=== PATIENT | male | born 1940 | race Caucasian/White ===

== ENCOUNTER 2022-09-05 18:59 | Inpatient (IN) | payer MEDICARE, BC ==
[~2022-09-05] VITALS: Ht 177.8 cm; Wt 78.3 kg
[2022-09-05] MEDS ORDERED: KETOROLAC 60MG/2ML VIAL IM STA (19:05)
[2022-09-05 19:48] LABS: BASOPHILS % 0.4 % (0.0-2.0); CHLORIDE 106 mEq/L (98-107); EOSINOPHILS % 2.2 % (0.0-5.0); HEMATOCRIT. 46.7 % (42.0-52.0); LYMPHOCYTES % 22.8 % (20.0-50.0); MEAN CORPUSCULAR HEMOGLOBIN 31.7 pg (28.0-32.0); MEAN CORPUSCULAR VOLUME 92.8 fL (80.0-94.0); MEAN PLATELET VOLUME 8.9 fl (7.4-10.4); MONOCYTES % 9.7 % (2.0-8.0); NEUTROPHILS % 64.9 % (40.0-76.0); PLATELET 205 x1000/uL (130-400); RED BLOOD CELL COUNT 5.03 mill/uL (4.7-6.1); RED CELL DISTRIBUTION WIDTH 13.8 % (11.6-14.6)
[2022-09-05] MEDS ORDERED: MORPHINE SULFATE 4 MG/ML CPJ (NOT FOR IM USE) IV STA (20:56)
[2022-09-05] MEDS ORDERED: ONDANSETRON HCL 4MG/2ML INJ IV STA (20:56)
[2022-09-05] MEDS ORDERED: SODIUM CHLORIDE 0.9% 1,000 ML IV ONE (21:00)
[2022-09-05] MEDS ORDERED: NON FORMULARY PATIENT HOME MED XX SCH (23:15)
[2022-09-05] MEDS ORDERED: CLONIDINE 0.1MG TABLET PO PRN (23:15)
[2022-09-05] MEDS ORDERED: ACETAMINOPHEN 325MG TABLET PO PRN (23:15)
[2022-09-05] MEDS ORDERED: ONDANSETRON HCL 4MG/2ML INJ IV PRN (23:15)
[2022-09-05] MEDS ORDERED: IPRATROPIUM/ALBUTEROL 0.5-3(2.5)MG/3ML NEB NEB PRN (23:15)
[2022-09-05] MEDS ORDERED: LORA-249 MT (23:16)
[2022-09-05] MEDS ORDERED: PROP60CA2 MT (23:16)
[2022-09-05] MEDS ORDERED: AMAN100C18 MT (23:16)
[2022-09-05] MEDS ORDERED: ASPI-1497 MT (23:16)
[2022-09-05] MEDS: SODIUM CHLORIDE 0.9% 1,000 ML IV SCH (23:45)
[2022-09-06 00:12] LABS: INR 1.1; PROTHROMBIN TIME 11.6 sec (9.6-11.0)
[2022-09-06] MEDS ORDERED: NALOXONE HCL 0.4MG/ML VIAL IV PRN (00:15)
[2022-09-06] MEDS: MORPHINE SULFATE 2 MG/ML CPJ (NOT FOR IM USE) IV PRN ×3 (03:17→23:18)
[2022-09-06 05:41] LABS: BASOPHILS % 0.2 % (0.0-2.0); EOSINOPHILS % 0.2 % (0.0-5.0); HEMATOCRIT. 42.7 % (42.0-52.0); HEMOGLOBIN. 14.7 g/dL (14.0-18.0); LYMPHOCYTES % 9.1 % (20.0-50.0); MEAN CORPUSCULAR HEMOGLOBIN 31.6 pg (28.0-32.0); MEAN CORPUSCULAR VOLUME 91.9 fL (80.0-94.0); MEAN PLATELET VOLUME 8.8 fl (7.4-10.4); MONOCYTES % 7.2 % (2.0-8.0); NEUTROPHILS % 83.3 % (40.0-76.0); PLATELET 203 x1000/uL (130-400); RED BLOOD CELL COUNT 4.64 mill/uL (4.7-6.1); RED CELL DISTRIBUTION WIDTH 13.4 % (11.6-14.6)
[2022-09-06] MEDS: PROPRANOLOL HCL 10MG TABLET PO SCH ×3 (06:16→23:02)
[2022-09-06 07:31] LABS: CHLORIDE 103 mEq/L (98-107)
[2022-09-06 07:51] LABS: T4 FREE 1.16 ng/dL (0.76-1.46)
[2022-09-06] MEDS ORDERED: REGADENOSON 0.4 MG/5 ML IV NR (08:15)
[2022-09-06] MEDS ORDERED: PROPRANOLOL HCL 10MG TABLET PO SCH (09:00)
[2022-09-06] MEDS: AMANTADINE HCL 100 MG CAPSULE PO SCH ×2 (09:00→20:16)
[2022-09-06] MEDS: LORAZEPAM 0.5MG TABLET PO SCH ×2 (09:07→20:16)
[2022-09-06] MEDS: DOCUSATE SODIUM 100MG CAPSULE PO SCH ×2 (09:07→20:16)
[2022-09-06] MEDS: PANTOPRAZOLE SODIUM 40 MG/VIAL IV SCH (09:07)
[2022-09-06] MEDS: ASPIRIN 81MG EC TABLET PO SCH ×2 (09:07→20:16)
[2022-09-06] MEDS: SENNOSIDES/DOCUSATE SOD 8.6/50MG TABLET PO SCH (20:16)
[2022-09-06] MEDS: SODIUM CHLORIDE 0.9% 1,000 ML IV SCH (20:18)
[2022-09-06 21:30] VITALS: BP 120/71
[2022-09-07] VITALS (10 sets, daily range): BP systolic 91–125; BP diastolic 45–71
[2022-09-07] MEDS: PANTOPRAZOLE SODIUM 40 MG/VIAL IV SCH (09:39)
[2022-09-07] MEDS: SODIUM CHLORIDE 0.9% 1,000 ML IV SCH (09:39)
[2022-09-07] MEDS: DEXT 5%/0.45% NACL 1000ML 1,000 ML IV SCH (10:26)
[2022-09-07] MEDS ORDERED: IPRATROPIUM BROMIDE (0.02%) 0.5MG/2.5ML NEB HHN PRN (11:30)
[2022-09-07] MEDS ORDERED: ALBUTEROL (0.083%) 2.5MG/3ML NEB HHN PRN (11:30)
[2022-09-07] MEDS ORDERED: DIGOXIN 500MCG/2ML AMP IV NR (11:30)
[2022-09-07] MEDS ORDERED: SODIUM CHLORIDE 0.9% 250 ML IV ONE (12:00)
[2022-09-07] MEDS ORDERED: AMIODARONE HCL 900 MG in DEXT 5% WATER 482 ML IV SCH (13:00)
[2022-09-07] MEDS ORDERED: AMIODARONE HCL 150 MG in DEXT 5% WATER 100 ML IV NR (13:00)
[2022-09-07 16:31] LABS: CHLORIDE 102 mEq/L (98-107)
[2022-09-07] MEDS: DIGOXIN 500MCG/2ML AMP IV SCH (17:50)
[2022-09-07] MEDS: ASPIRIN 81MG EC TABLET PO SCH ×2 (21:00→22:19)
[2022-09-07] MEDS: LORAZEPAM 0.5MG TABLET PO SCH (22:18)
[2022-09-07] MEDS: DOCUSATE SODIUM 100MG CAPSULE PO SCH (22:19)
[2022-09-07] MEDS: AMANTADINE HCL 100 MG CAPSULE PO SCH (22:19)
[2022-09-07] MEDS: SENNOSIDES/DOCUSATE SOD 8.6/50MG TABLET PO SCH (22:20)
[2022-09-08] VITALS (11 sets, daily range): BP systolic 95–136; BP diastolic 44–116
[2022-09-08] MEDS: DEXT 5%/0.45% NACL 1000ML 1,000 ML IV SCH ×2 (03:10→20:41)
[2022-09-08] MEDS: DIGOXIN 500MCG/2ML AMP IV SCH (06:27)
[2022-09-08] MEDS: PROPRANOLOL HCL 10MG TABLET PO SCH ×3 (06:28→20:41)
[2022-09-08] MEDS ORDERED: DIGOXIN 500MCG/2ML AMP IV NR (09:00)
[2022-09-08] MEDS: DOCUSATE SODIUM 100MG CAPSULE PO SCH ×2 (09:16→19:03)
[2022-09-08] MEDS: ASPIRIN 81MG EC TABLET PO SCH ×2 (09:16→20:41)
[2022-09-08] MEDS: PANTOPRAZOLE SODIUM 40 MG/VIAL IV SCH (09:16)
[2022-09-08] MEDS: AMANTADINE HCL 100 MG CAPSULE PO SCH ×2 (09:21→19:03)
[2022-09-08] MEDS: LORAZEPAM 0.5MG TABLET PO SCH ×2 (09:21→19:03)
[2022-09-08 10:50] LABS: BASOPHILS % 0.5 % (0.0-2.0); EOSINOPHILS % 2.1 % (0.0-5.0); HEMOGLOBIN. 14.2 g/dL (14.0-18.0); MEAN CORPUSCULAR HEMOGLOBIN 31.7 pg (28.0-32.0); MEAN CORPUSCULAR VOLUME 93.5 fL (80.0-94.0); MEAN PLATELET VOLUME 10.1 fl (7.4-10.4); MONOCYTES % 11.9 % (2.0-8.0); NEUTROPHILS % 70.5 % (40.0-76.0); PLATELET 171 x1000/uL (130-400); RED CELL DISTRIBUTION WIDTH 13.6 % (11.6-14.6)
[2022-09-08 12:43] LABS: CHLORIDE 106 mEq/L (98-107)
[2022-09-08] MEDS ORDERED: HEPARIN 1000 UNITS/ML 10ML ONE (14:55)
[2022-09-08] MEDS ORDERED: IODIXANOL 320MG/ML 100 ML BOTTLE IV ONE (14:55)
[2022-09-08] MEDS ORDERED: FENTANYL CITRATE/PF 50MCG/ML 2ML VIAL ONE (14:56)
[2022-09-08] MEDS ORDERED: MIDAZOLAM HCL 2 MG/2 ML VIAL ONE (14:56)
[2022-09-08] MEDS ORDERED: LIDOCAINE HCL 1% 20ML VIAL (Pyxis) INJ ONE ×2 (14:57→14:58)
[2022-09-08] MEDS ORDERED: ATROPINE SULFATE 1MG/10ML SYR IV PRN (15:45)
[2022-09-08] MEDS: SENNOSIDES/DOCUSATE SOD 8.6/50MG TABLET PO SCH (20:40)
[2022-09-08] MEDS: ACETAMINOPHEN 325MG TABLET PO PRN (20:50)
[2022-09-09] VITALS (11 sets, daily range): BP systolic 89–130; BP diastolic 44–63
[2022-09-09] MEDS: PROPRANOLOL HCL 10MG TABLET PO SCH ×3 (05:33→21:49)
[2022-09-09 06:34] LABS: BASOPHILS % 0.3 % (0.0-2.0); EOSINOPHILS % 4.1 % (0.0-5.0); HEMOGLOBIN. 13.4 g/dL (14.0-18.0); LYMPHOCYTES % 18.1 % (20.0-50.0); MEAN CORPUSCULAR VOLUME 92.9 fL (80.0-94.0); MEAN PLATELET VOLUME 9.2 fl (7.4-10.4); MONOCYTES % 13.1 % (2.0-8.0); NEUTROPHILS % 64.4 % (40.0-76.0); PLATELET 187 x1000/uL (130-400); RED CELL DISTRIBUTION WIDTH 13.5 % (11.6-14.6)
[2022-09-09] MEDS: ASPIRIN 81MG EC TABLET PO SCH ×2 (10:06→21:46)
[2022-09-09] MEDS: DOCUSATE SODIUM 100MG CAPSULE PO SCH ×2 (10:06→16:24)
[2022-09-09] MEDS: FAMOTIDINE 20MG/2ML VIAL IV SCH ×2 (10:06→21:46)
[2022-09-09] MEDS: AMANTADINE HCL 100 MG CAPSULE PO SCH ×2 (10:15→16:24)
[2022-09-09] MEDS: LORAZEPAM 0.5MG TABLET PO SCH ×2 (10:16→16:24)
[2022-09-09] MEDS ORDERED: AMIODARONE HCL 900 MG in DEXT 5% WATER 482 ML IV PRN (11:00)
[2022-09-09] MEDS: DEXT 5%/0.45% NACL 1000ML 1,000 ML IV SCH (11:53)
[2022-09-09] MEDS ORDERED: LACTULOSE 20G/30ML UDC PO PRN (16:30)
[2022-09-09] MEDS: DIGOXIN 500MCG/2ML AMP IV SCH (17:07)
[2022-09-09] MEDS: SENNOSIDES/DOCUSATE SOD 8.6/50MG TABLET PO SCH (21:49)
[2022-09-10] VITALS (12 sets, daily range): BP systolic 98–133; BP diastolic 32–96
[2022-09-10] MEDS: ACETAMINOPHEN 325MG TABLET PO PRN ×2 (00:53→04:26)
[2022-09-10] MEDS: DEXT 5%/0.45% NACL 1000ML 1,000 ML IV SCH ×2 (04:03→21:32)
[2022-09-10] MEDS: PROPRANOLOL HCL 10MG TABLET PO SCH ×3 (06:00→21:31)
[2022-09-10] MEDS: AMANTADINE HCL 100 MG CAPSULE PO SCH ×2 (08:54→17:22)
[2022-09-10] MEDS: LORAZEPAM 0.5MG TABLET PO SCH ×2 (08:54→17:22)
[2022-09-10] MEDS: DOCUSATE SODIUM 100MG CAPSULE PO SCH ×2 (08:54→17:22)
[2022-09-10] MEDS: ASPIRIN 81MG EC TABLET PO SCH (08:54)
[2022-09-10] MEDS: FAMOTIDINE 20MG/2ML VIAL IV SCH ×2 (08:55→21:32)
[2022-09-10] MEDS: AMIODARONE HCL 200 MG TABLET PO SCH ×2 (09:10→21:00)
[2022-09-10] MEDS: MORPHINE SULFATE 2 MG/ML CPJ (NOT FOR IM USE) IV PRN (12:24)
[2022-09-10] MEDS: DIGOXIN 500MCG/2ML AMP IV SCH (17:27)
[2022-09-10] MEDS: SENNOSIDES/DOCUSATE SOD 8.6/50MG TABLET PO SCH (21:32)
[2022-09-11] VITALS (11 sets, daily range): BP systolic 110–140; BP diastolic 58–73
[2022-09-11] MEDS: ACETAMINOPHEN 325MG TABLET PO PRN (02:25)
[2022-09-11 06:10] LABS: HEMATOCRIT 38.1 % (42.0-52.0); HEMOGLOBIN 13.3 g/dL (14.0-18.0); MEAN CORPUSCULAR HEMOGLOBIN 31.8 pg (28.0-32.0); MEAN CORPUSCULAR VOLUME 91.5 fL (80.0-94.0); PLATELET 218 x1000/uL (130-400); RED BLOOD CELL COUNT 4.17 mill/uL (4.7-6.1); RED CELL DISTRIBUTION WIDTH 13.6 % (11.6-14.6)
[2022-09-11] MEDS: PROPRANOLOL HCL 10MG TABLET PO SCH ×3 (06:11→22:32)
[2022-09-11 07:54] LABS: CHLORIDE 103 mEq/L (98-107)
[2022-09-11] MEDS: AMIODARONE HCL 200 MG TABLET PO SCH ×2 (09:00→20:30)
[2022-09-11] MEDS: AMANTADINE HCL 100 MG CAPSULE PO SCH ×2 (09:29→19:41)
[2022-09-11] MEDS: FAMOTIDINE 20MG/2ML VIAL IV SCH ×2 (09:29→20:30)
[2022-09-11] MEDS: LORAZEPAM 0.5MG TABLET PO SCH (09:30)
[2022-09-11] MEDS: DOCUSATE SODIUM 100MG CAPSULE PO SCH ×2 (09:30→19:40)
[2022-09-11] MEDS: DEXT 5%/0.45% NACL 1000ML 1,000 ML IV SCH (12:59)
[2022-09-11] MEDS ORDERED: LIDOCAINE HCL 1%/EPI 1:200,000 30 ML VIAL ONE (14:04)
[2022-09-11] MEDS ORDERED: SKIN ADHESIVE 0.7 GM EA TOP ONE (14:05)
[2022-09-11] MEDS ORDERED: POLYMYXIN B SULFATE 500000 UNITS/VIAL ONE (14:05)
[2022-09-11] MEDS ORDERED: VANCOMYCIN HCL 1 GM/VIAL ONE (14:08)
[2022-09-11] MEDS ORDERED: ROPIVACAINE HCL 1% 20 ML VIAL EPI ONE (14:10)
[2022-09-11] MEDS ORDERED: EPINEPHRINE 1:1000 1 MG/ML AMP ONE (14:11)
[2022-09-11] MEDS ORDERED: KETOROLAC 30MG/ML VIAL ONE (14:11)
[2022-09-11] MEDS ORDERED: MORPHINE SULFATE/PF 1MG/ML 10ML AMP ONE (14:12)
[2022-09-11] MEDS ORDERED: TRANEXAMIC ACID 1,000 MG in SODIUM CHLORIDE 0.9% 100 ML IV NR ×2 (14:15→15:00)
[2022-09-11] MEDS ORDERED: FENTANYL CITRATE/PF 50MCG/ML 2ML VIAL ONE (14:37)
[2022-09-11] MEDS ORDERED: PROPOFOL 200MG/20ML VIAL IV ONE (14:37)
[2022-09-11] MEDS ORDERED: MIDAZOLAM HCL 2 MG/2 ML VIAL ONE (14:38)
[2022-09-11] MEDS ORDERED: CEFAZOLIN 1000MG PREMIX 50 ML IV SCH (16:30)
[2022-09-11] MEDS ORDERED: LABETALOL 5MG/ML SYR 20 MG/4 ML SYRINGE IV PRN (16:30)
[2022-09-11] MEDS ORDERED: ONDANSETRON HCL 4MG/2ML INJ IV PRN (16:30)
[2022-09-11] MEDS ORDERED: HYDROMORPHONE HCL/PF 2MG/ML CPJ IV PRN (16:30)
[2022-09-11] MEDS ORDERED: MEPERIDINE HCL/PF 25MG/ML CPJ IV PRN (16:30)
[2022-09-11] MEDS ORDERED: NALOXONE HCL 0.4MG/ML VIAL IV PRN (16:45)
[2022-09-11] MEDS: DIGOXIN 500MCG/2ML AMP IV SCH (18:00)
[2022-09-11] MEDS: SENNOSIDES/DOCUSATE SOD 8.6/50MG TABLET PO SCH (19:41)
[2022-09-11] MEDS: HYDROCODONE/ACETAMINOPHEN 5/325MG TABLET PO PRN (20:30)
[2022-09-11] MEDS: METOCLOPRAMIDE HCL 10MG/2ML VIAL IV SCH (22:32)
[2022-09-11] MEDS: CEFAZOLIN 1000MG PREMIX 50 ML IV SCH (22:32)
[2022-09-12] VITALS (11 sets, daily range): BP systolic 95–142; BP diastolic 45–74
[2022-09-12] MEDS: KETOROLAC 30MG/ML VIAL IV PRN ×2 (04:21→15:11)
[2022-09-12] MEDS: PROPRANOLOL HCL 10MG TABLET PO SCH ×2 (06:00→13:53)
[2022-09-12] MEDS: CEFAZOLIN 1000MG PREMIX 50 ML IV SCH ×2 (06:21→15:11)
[2022-09-12] MEDS: METOCLOPRAMIDE HCL 10MG/2ML VIAL IV SCH ×2 (06:21→13:53)
[2022-09-12] MEDS: DEXT 5%/0.45% NACL 1000ML 1,000 ML IV SCH (07:11)
[2022-09-12] MEDS: DOCUSATE SODIUM 100MG CAPSULE PO SCH ×2 (08:45→17:00)
[2022-09-12] MEDS: SENNOSIDES/DOCUSATE SOD 8.6/50MG TABLET PO SCH ×2 (08:45→17:00)
[2022-09-12] MEDS: HYDROCODONE/ACETAMINOPHEN 5/325MG TABLET PO PRN ×2 (08:45→19:55)
[2022-09-12] MEDS: FAMOTIDINE 20MG/2ML VIAL IV SCH (08:45)
[2022-09-12] MEDS: AMIODARONE HCL 200 MG TABLET PO SCH (08:46)
[2022-09-12] MEDS: AMANTADINE HCL 100 MG CAPSULE PO SCH ×2 (08:47→19:02)
[2022-09-12] MEDS ORDERED: POLYETHYLENE GLYCOL 3350 (17GM) 1 DOSE PACK PO SCH (09:00)
[2022-09-12] MEDS ORDERED: LACTULOSE 20G/30ML UDC PO SCH (09:00)
[2022-09-12] MEDS ORDERED: MINERAL OIL ENEMA 133ML PR NR (13:00)
[2022-09-12] MEDS: LACTULOSE 20G/30ML UDC PO SCH ×3 (13:53→17:00)
[2022-09-12] MEDS ORDERED: ATORVASTATIN CALCIUM 10MG TABLET PO SCH (21:00)
== END 2022-09-12 20:05 | DRG 521 ==
LOC: ER 19:33 → MICUSO 21:57 → 6EST 09-06 21:49 → 5EST 09-07 13:33
PROVIDERS: ADMIT Hospitalist; ATTEND Hospitalist
PROC: 4A023N7 Measurement of Cardiac Sampling and Pressure, Left Heart, Percutaneous Approach (ICD-10-PCS; 2022-09-08)
PROC: B2111ZZ Fluoroscopy of Multiple Coronary Arteries using Low Osmolar Contrast (ICD-10-PCS; 2022-09-08)
PROC: B2151ZZ Fluoroscopy of Left Heart using Low Osmolar Contrast (ICD-10-PCS; 2022-09-08)
PROC: 02HV33Z Insertion of Infusion Device into Superior Vena Cava, Percutaneous Approach (ICD-10-PCS; 2022-09-08)
PROC: B548ZZA Ultrasonography of Superior Vena Cava, Guidance (ICD-10-PCS; 2022-09-08)
PROC: 0SRS03A Replacement of Left Hip Joint, Femoral Surface with Ceramic Synthetic Substitute, Uncemented, Open Approach (ICD-10-PCS; principal; 2022-09-11)
DX: S72.002A Fracture of unspecified part of neck of left femur, initial encounter for closed fracture (principal); I50.21 Acute systolic (congestive) heart failure; I48.19 Other persistent atrial fibrillation; N17.9 Acute kidney failure, unspecified; N28.9 Disorder of kidney and ureter, unspecified; G20 Parkinson's disease; G25.81 Restless legs syndrome; K59.09 Other constipation; G89.29 Other chronic pain; D64.9 Anemia, unspecified; I95.9 Hypotension, unspecified; G62.9 Polyneuropathy, unspecified; Z20.822 Contact with and (suspected) exposure to COVID-19; Z96.652 Presence of left artificial knee joint; Z85.46 Personal history of malignant neoplasm of prostate; Z79.899 Other long term (current) drug therapy; Z79.82 Long term (current) use of aspirin; Z88.0 Allergy status to penicillin; Z82.49 Family history of ischemic heart disease and other diseases of the circulatory system; W18.30XA Fall on same level, unspecified, initial encounter; Y93.89 Activity, other specified; Y92.009 Unspecified place in unspecified non-institutional (private) residence as the place of occurrence of the external cause; Y99.8 Other external cause status
CPT/HCPCS: 36415; 36573; 71045; 72170; 73502; 78452; 80048; 80053; 80061; 80162; 82962; 83036; 83735; 83880; 84439; 84443; 84484; 85025; 85027; 87426; 88309; 88311; 93005; 93306; 93458; 93970; 97162; 99285; A9500; C1725; C1760; C1769; C1887; C1893; C9113; J0282; J0690; J1160; J1644; J1885; J2250; J2270; J2274; J2405; J2704; J2765; J2795; J3010; J3370; J3490; J7030; J7050; J7060; Q9967; C1776

== ENCOUNTER 2022-09-12 20:05 | Inpatient (IN) | payer MEDICARE, BC ==
[~2022-09-12] VITALS: Ht 177.8 cm; Wt 78.3 kg
[2022-09-12 20:05] VITALS: BP 121/51
[~2022-09-12 20:05] MED LIST: AMAN100C18 MT; ASPI-1497 MT; LORA-249 MT; PROP60CA2 MT
[2022-09-12 21:00] VITALS: BP_SYST 121; BP_SYST 135; BP_DIAS 51; BP_DIAS 71
[2022-09-12] MEDS ORDERED: CLONIDINE 0.1MG TABLET PO PRN (21:45)
[2022-09-12] MEDS ORDERED: NALOXONE HCL 0.4 MG/ML 1ML VIAL IV PRN (21:45)
[2022-09-12] MEDS ORDERED: ONDANSETRON HCL 4MG/2ML INJ IV PRN (21:45)
[2022-09-12] MEDS ORDERED: LACTULOSE 20G/30ML UDC PO PRN (21:45)
[2022-09-12] MEDS ORDERED: ACETAMINOPHEN 325MG TABLET PO PRN (21:45)
[2022-09-12 23:45] VITALS: BP 135/65
[2022-09-12] MEDS: AMIODARONE HCL 200 MG TABLET PO SCH (23:49)
[2022-09-12] MEDS: HYDROCODONE/ACETAMINOPHEN 5/325MG TABLET PO PRN (23:49)
[2022-09-12] MEDS: FAMOTIDINE 20MG TABLET PO SCH (23:52)
[2022-09-12] MEDS: PROPRANOLOL HCL 10MG TABLET PO SCH (23:53)
[2022-09-12] MEDS: METOCLOPRAMIDE HCL 10MG/2ML VIAL IV SCH (23:54)
[2022-09-12] MEDS: ATORVASTATIN CALCIUM 10MG TABLET PO SCH (23:54)
[2022-09-13] MEDS: CEFAZOLIN 1000MG PREMIX 50 ML IV SCH ×2 (00:05→06:25)
[2022-09-13] MEDS: PROPRANOLOL HCL 10MG TABLET PO SCH ×3 (06:00→21:24)
[2022-09-13 06:13] VITALS: BP 108/56
[2022-09-13 06:14] LABS: BASOPHILS % 0.4 % (0.0-2.0); EOSINOPHILS % 0.7 % (0.0-5.0); HEMATOCRIT. 37.8 % (42.0-52.0); HEMOGLOBIN. 12.9 g/dL (14.0-18.0); LYMPHOCYTES % 8.2 % (20.0-50.0); MEAN CORPUSCULAR HEMOGLOBIN 31.3 pg (28.0-32.0); MEAN CORPUSCULAR VOLUME 91.6 fL (80.0-94.0); MEAN PLATELET VOLUME 8.9 fl (7.4-10.4); MONOCYTES % 7.6 % (2.0-8.0); NEUTROPHILS % 83.1 % (40.0-76.0); PLATELET 249 x1000/uL (130-400); RED BLOOD CELL COUNT 4.13 mill/uL (4.7-6.1); RED CELL DISTRIBUTION WIDTH 13.6 % (11.6-14.6)
[2022-09-13] MEDS: METOCLOPRAMIDE HCL 10MG/2ML VIAL IV SCH (06:14)
[2022-09-13] MEDS: HYDROCODONE/ACETAMINOPHEN 5/325MG TABLET PO PRN (06:16)
[2022-09-13 06:24] LABS: CHLORIDE 98 mEq/L (98-107)
[2022-09-13 08:00] VITALS: BP 117/53
[2022-09-13] MEDS ORDERED: LACTULOSE 20G/30ML UDC PO SCH (09:00)
[2022-09-13] MEDS: POLYETHYLENE GLYCOL 3350 (17GM) 1 DOSE PACK PO SCH ×2 (09:00→09:42)
[2022-09-13] MEDS: DOCUSATE SODIUM 100MG CAPSULE PO SCH ×2 (09:37→17:00)
[2022-09-13] MEDS: LACTULOSE 20G/30ML UDC PO SCH (09:37)
[2022-09-13] MEDS: FAMOTIDINE 20MG TABLET PO SCH ×2 (09:38→21:21)
[2022-09-13] MEDS: ENOXAPARIN 40MG/0.4ML SYR SUBCUT SCH (09:39)
[2022-09-13] MEDS: AMIODARONE HCL 200 MG TABLET PO SCH (09:39)
[2022-09-13] MEDS: AMANTADINE HCL 100 MG CAPSULE PO SCH ×2 (09:41→17:10)
[2022-09-13] MEDS: SENNOSIDES/DOCUSATE SOD 8.6/50MG TABLET PO SCH (17:00)
[2022-09-13 18:44] LABS: CLARITY URINE CLEAR (CLEAR); COLOR URINE DARK YELLOW (YELLOW); KETONES URINE TRACE (NEGATIVE); LEUKOCYTE ESTERASE URINE NEGATIVE (NEGATIVE); NITRITE URINE NEGATIVE (NEGATIVE); OCCULT BLOOD URINE NEGATIVE (NEGATIVE); PROTEIN URINE 1+ (NEGATIVE); SPECIFIC GRAVITY URINE 1.026 (1.005-1.030)
[2022-09-13 20:13] VITALS: BP 110/34
[2022-09-13] MEDS: ATORVASTATIN CALCIUM 10MG TABLET PO SCH (21:21)
[2022-09-14 06:26] LABS: CHLORIDE 98 mEq/L (98-107)
[2022-09-14 06:37] LABS: BASOPHILS % 0.4 % (0.0-2.0); EOSINOPHILS % 0.8 % (0.0-5.0); HEMATOCRIT. 35.1 % (42.0-52.0); HEMOGLOBIN. 11.9 g/dL (14.0-18.0); LYMPHOCYTES % 8.5 % (20.0-50.0); MEAN CORPUSCULAR HEMOGLOBIN 31.3 pg (28.0-32.0); MEAN CORPUSCULAR VOLUME 92.4 fL (80.0-94.0); MEAN PLATELET VOLUME 9.2 fl (7.4-10.4); MONOCYTES % 11.3 % (2.0-8.0); PLATELET 233 x1000/uL (130-400); RED CELL DISTRIBUTION WIDTH 13.6 % (11.6-14.6)
[2022-09-14 06:43] LABS: TOTAL IRON BINDING CAPACITY 267 ug/dL (250-450)
[2022-09-14] MEDS: PROPRANOLOL HCL 10MG TABLET PO SCH ×2 (06:45→17:42)
[2022-09-14 07:02] LABS: FERRITIN 406 ng/mL (22-322)
[2022-09-14 07:16] LABS: VITAMIN B12 SERUM 446 pg/mL (211-911)
[2022-09-14 08:00] VITALS: BP 91/40
[2022-09-14] MEDS: LACTULOSE 20G/30ML UDC PO SCH (08:37)
[2022-09-14] MEDS: POLYETHYLENE GLYCOL 3350 (17GM) 1 DOSE PACK PO SCH (08:38)
[2022-09-14] MEDS: AMANTADINE HCL 100 MG CAPSULE PO SCH ×2 (08:45→17:42)
[2022-09-14] MEDS: ENOXAPARIN 40MG/0.4ML SYR SUBCUT SCH (08:45)
[2022-09-14] MEDS: SENNOSIDES/DOCUSATE SOD 8.6/50MG TABLET PO SCH ×2 (08:45→17:42)
[2022-09-14] MEDS: DOCUSATE SODIUM 100MG CAPSULE PO SCH ×2 (08:45→17:42)
[2022-09-14] MEDS: FAMOTIDINE 20MG TABLET PO SCH ×2 (08:45→20:51)
[2022-09-14] MEDS ORDERED: AMIODARONE HCL 200 MG TABLET PO SCH (09:00)
[2022-09-14] MEDS ORDERED: SODIUM CHLORIDE 0.9% 250 ML IV ONE (10:30)
[2022-09-14 13:26] VITALS: BP 100/49
[2022-09-14] MEDS ORDERED: PROPRANOLOL HCL 10MG TABLET PO SCH (14:00)
[2022-09-14] MEDS: CYANOCOBALAMIN 1000MCG/ML VIAL IM SCH (14:41)
[2022-09-14 17:22] VITALS: BP 120/56
[2022-09-14] MEDS: FERROUS SULFATE 325MG TABLET PO SCH (17:42)
[2022-09-14 20:00] VITALS: BP 103/59
[2022-09-14] MEDS: ATORVASTATIN CALCIUM 10MG TABLET PO SCH (20:51)
[2022-09-14] MEDS: CARBIDOPA/LEVODOPA 25/100MG TABLET PO SCH (22:09)
[2022-09-15 06:40] LABS: HEMATOCRIT. 31.5 % (42.0-52.0); HEMOGLOBIN. 10.6 g/dL (14.0-18.0); MEAN CORPUSCULAR HEMOGLOBIN 30.8 pg (28.0-32.0); MEAN CORPUSCULAR VOLUME 91.5 fL (80.0-94.0); MEAN PLATELET VOLUME 8.7 fl (7.4-10.4); PLATELET 274 x1000/uL (130-400); RED BLOOD CELL COUNT 3.44 mill/uL (4.7-6.1); RED CELL DISTRIBUTION WIDTH 13.6 % (11.6-14.6)
[2022-09-15] MEDS: CARBIDOPA/LEVODOPA 25/100MG TABLET PO SCH ×3 (06:52→23:27)
[2022-09-15 07:11] LABS: CHLORIDE 105 mEq/L (98-107)
[2022-09-15 08:00] VITALS: BP 114/48
[2022-09-15] MEDS: ENOXAPARIN 40MG/0.4ML SYR SUBCUT SCH (09:00)
[2022-09-15] MEDS: SENNOSIDES/DOCUSATE SOD 8.6/50MG TABLET PO SCH ×2 (09:00→17:34)
[2022-09-15] MEDS: POLYETHYLENE GLYCOL 3350 (17GM) 1 DOSE PACK PO SCH (09:00)
[2022-09-15] MEDS: ASCORBIC ACID 500 MG TABLET PO SCH (09:00)
[2022-09-15] MEDS: LACTULOSE 20G/30ML UDC PO SCH (09:00)
[2022-09-15] MEDS: PROPRANOLOL HCL 10MG TABLET PO SCH ×2 (09:00→17:36)
[2022-09-15] MEDS: FAMOTIDINE 20MG TABLET PO SCH ×2 (09:00→20:43)
[2022-09-15] MEDS: CYANOCOBALAMIN 1000MCG/ML VIAL IM SCH (09:00)
[2022-09-15] MEDS: FERROUS SULFATE 325MG TABLET PO SCH ×3 (09:00→17:00)
[2022-09-15] MEDS: AMANTADINE HCL 100 MG CAPSULE PO SCH ×2 (09:00→17:34)
[2022-09-15] MEDS: DOCUSATE SODIUM 100MG CAPSULE PO SCH ×2 (09:00→17:00)
[2022-09-15 14:23] LABS: PLATELET ESTIMATE NORMAL
[2022-09-15 20:00] VITALS: BP 99/46
[2022-09-15] MEDS: ATORVASTATIN CALCIUM 10MG TABLET PO SCH (20:43)
[2022-09-16] MEDS: CARBIDOPA/LEVODOPA 25/100MG TABLET PO SCH ×3 (05:35→21:30)
[2022-09-16 08:00] VITALS: BP 129/55
[2022-09-16] MEDS: LACTULOSE 20G/30ML UDC PO SCH (09:00)
[2022-09-16] MEDS: POLYETHYLENE GLYCOL 3350 (17GM) 1 DOSE PACK PO SCH (09:00)
[2022-09-16] MEDS: SENNOSIDES/DOCUSATE SOD 8.6/50MG TABLET PO SCH (09:00)
[2022-09-16] MEDS: ASCORBIC ACID 500 MG TABLET PO SCH (09:00)
[2022-09-16] MEDS: DOCUSATE SODIUM 100MG CAPSULE PO SCH ×2 (09:00→17:00)
[2022-09-16] MEDS: PROPRANOLOL HCL 10MG TABLET PO SCH ×2 (09:17→17:00)
[2022-09-16] MEDS: AMANTADINE HCL 100 MG CAPSULE PO SCH ×2 (09:17→17:00)
[2022-09-16] MEDS: FAMOTIDINE 20MG TABLET PO SCH ×2 (09:17→21:30)
[2022-09-16] MEDS: ENOXAPARIN 40MG/0.4ML SYR SUBCUT SCH (09:18)
[2022-09-16] MEDS: CYANOCOBALAMIN 1000MCG/ML VIAL IM SCH (09:18)
[2022-09-16] MEDS: FERROUS SULFATE 325MG TABLET PO SCH ×3 (09:18→17:00)
[2022-09-16] MEDS: ACETAMINOPHEN 325MG TABLET PO PRN (14:01)
[2022-09-16 20:00] VITALS: BP 107/54
[2022-09-16] MEDS: ATORVASTATIN CALCIUM 10MG TABLET PO SCH (21:30)
[2022-09-17] MEDS: CARBIDOPA/LEVODOPA 25/100MG TABLET PO SCH ×3 (05:55→21:20)
[2022-09-17 08:00] VITALS: BP 103/54
[2022-09-17 08:38] LABS: HEMATOCRIT. 35.5 % (42.0-52.0); MEAN CORPUSCULAR VOLUME 91.7 fL (80.0-94.0); MEAN PLATELET VOLUME 8.7 fl (7.4-10.4); PLATELET 350 x1000/uL (130-400); RED BLOOD CELL COUNT 3.87 mill/uL (4.7-6.1); RED CELL DISTRIBUTION WIDTH 13.6 % (11.6-14.6)
[2022-09-17] MEDS: PROPRANOLOL HCL 10MG TABLET PO SCH ×2 (09:00→16:18)
[2022-09-17] MEDS: LACTULOSE 20G/30ML UDC PO SCH (09:00)
[2022-09-17] MEDS: POLYETHYLENE GLYCOL 3350 (17GM) 1 DOSE PACK PO SCH (09:00)
[2022-09-17] MEDS: ENOXAPARIN 40MG/0.4ML SYR SUBCUT SCH (09:50)
[2022-09-17] MEDS: FAMOTIDINE 20MG TABLET PO SCH ×2 (09:52→21:21)
[2022-09-17] MEDS: AMANTADINE HCL 100 MG CAPSULE PO SCH ×2 (09:52→16:18)
[2022-09-17] MEDS: ASCORBIC ACID 500 MG TABLET PO SCH (09:52)
[2022-09-17] MEDS: DOCUSATE SODIUM 100MG CAPSULE PO SCH ×2 (09:52→16:18)
[2022-09-17] MEDS: FERROUS SULFATE 325MG TABLET PO SCH ×3 (09:53→16:18)
[2022-09-17] MEDS: SENNOSIDES/DOCUSATE SOD 8.6/50MG TABLET PO SCH ×2 (09:59→16:18)
[2022-09-17 13:23] LABS: PLATELET ESTIMATE NORMAL
[2022-09-17] MEDS: ALPRAZOLAM 0.25 MG TABLET PO PRN (18:26)
[2022-09-17 20:00] VITALS: BP 103/57
[2022-09-17] MEDS: ATORVASTATIN CALCIUM 10MG TABLET PO SCH (21:21)
[2022-09-18] MEDS: CARBIDOPA/LEVODOPA 25/100MG TABLET PO SCH ×3 (05:59→21:08)
[2022-09-18 08:00] VITALS: BP 104/57
[2022-09-18] MEDS: SENNOSIDES/DOCUSATE SOD 8.6/50MG TABLET PO SCH ×2 (09:04→16:39)
[2022-09-18] MEDS: ASCORBIC ACID 500 MG TABLET PO SCH (09:05)
[2022-09-18] MEDS: AMANTADINE HCL 100 MG CAPSULE PO SCH ×2 (09:05→16:39)
[2022-09-18] MEDS: PROPRANOLOL HCL 10MG TABLET PO SCH ×2 (09:05→16:38)
[2022-09-18] MEDS: FERROUS SULFATE 325MG TABLET PO SCH ×3 (09:06→16:39)
[2022-09-18] MEDS: POLYETHYLENE GLYCOL 3350 (17GM) 1 DOSE PACK PO SCH (09:06)
[2022-09-18] MEDS: LACTULOSE 20G/30ML UDC PO SCH (09:06)
[2022-09-18] MEDS: FAMOTIDINE 20MG TABLET PO SCH (09:06)
[2022-09-18] MEDS: ENOXAPARIN 40MG/0.4ML SYR SUBCUT SCH (09:06)
[2022-09-18] MEDS: DOCUSATE SODIUM 100MG CAPSULE PO SCH ×2 (09:06→16:39)
[2022-09-18 19:42] VITALS: BP 100/46
[2022-09-18] MEDS: ALPRAZOLAM 0.25 MG TABLET PO PRN (21:08)
[2022-09-18] MEDS: ATORVASTATIN CALCIUM 10MG TABLET PO SCH (21:08)
[2022-09-19] MEDS: CARBIDOPA/LEVODOPA 25/100MG TABLET PO SCH ×3 (06:35→22:16)
[2022-09-19 08:00] VITALS: BP 114/47
[2022-09-19] MEDS: ASCORBIC ACID 500 MG TABLET PO SCH (09:00)
[2022-09-19] MEDS: AMANTADINE HCL 100 MG CAPSULE PO SCH ×2 (09:00→16:55)
[2022-09-19] MEDS: DOCUSATE SODIUM 100MG CAPSULE PO SCH ×2 (09:00→16:56)
[2022-09-19] MEDS: FERROUS SULFATE 325MG TABLET PO SCH ×3 (09:00→16:55)
[2022-09-19] MEDS: SENNOSIDES/DOCUSATE SOD 8.6/50MG TABLET PO SCH ×2 (09:00→16:55)
[2022-09-19] MEDS: POLYETHYLENE GLYCOL 3350 (17GM) 1 DOSE PACK PO SCH (09:00)
[2022-09-19] MEDS: ENOXAPARIN 40MG/0.4ML SYR SUBCUT SCH (09:00)
[2022-09-19] MEDS: LACTULOSE 20G/30ML UDC PO SCH (09:00)
[2022-09-19] MEDS: PROPRANOLOL HCL 10MG TABLET PO SCH ×2 (09:00→16:59)
[2022-09-19] MEDS: FAMOTIDINE 20MG TABLET PO SCH (09:00)
[2022-09-19] MEDS: ACETAMINOPHEN 325MG TABLET PO PRN ×2 (14:04→17:41)
[2022-09-19 20:04] VITALS: BP 99/52
[2022-09-19 22:00] VITALS: BP 109/58
[2022-09-19] MEDS: ATORVASTATIN CALCIUM 10MG TABLET PO SCH (22:16)
[2022-09-20 04:12] LABS: 25-HYDROXY VITAMIN D3 21 ng/mL (.)
[2022-09-20] MEDS: ACETAMINOPHEN 325MG TABLET PO PRN (05:49)
[2022-09-20] MEDS: CARBIDOPA/LEVODOPA 25/100MG TABLET PO SCH ×3 (05:49→21:10)
[2022-09-20 08:00] VITALS: BP 120/53
[2022-09-20] MEDS: POLYETHYLENE GLYCOL 3350 (17GM) 1 DOSE PACK PO SCH (08:45)
[2022-09-20] MEDS: LACTULOSE 20G/30ML UDC PO SCH (08:45)
[2022-09-20] MEDS: ASCORBIC ACID 500 MG TABLET PO SCH (08:46)
[2022-09-20] MEDS: DOCUSATE SODIUM 100MG CAPSULE PO SCH ×2 (08:46→17:24)
[2022-09-20] MEDS: ENOXAPARIN 40MG/0.4ML SYR SUBCUT SCH (08:46)
[2022-09-20] MEDS: FAMOTIDINE 20MG TABLET PO SCH (08:46)
[2022-09-20] MEDS: AMANTADINE HCL 100 MG CAPSULE PO SCH ×2 (08:47→17:24)
[2022-09-20] MEDS: SENNOSIDES/DOCUSATE SOD 8.6/50MG TABLET PO SCH ×2 (08:47→17:24)
[2022-09-20] MEDS: FERROUS SULFATE 325MG TABLET PO SCH ×3 (08:47→17:00)
[2022-09-20] MEDS: PROPRANOLOL HCL 10MG TABLET PO SCH ×2 (08:58→17:26)
[2022-09-20] MEDS: SERTRALINE HCL 25MG TABLET PO SCH (13:59)
[2022-09-20 20:00] VITALS: BP 94/43
[2022-09-20] MEDS: ALPRAZOLAM 0.25 MG TABLET PO PRN (21:10)
[2022-09-20] MEDS: ATORVASTATIN CALCIUM 10MG TABLET PO SCH (21:10)
[2022-09-21] MEDS: CARBIDOPA/LEVODOPA 25/100MG TABLET PO SCH ×3 (05:42→21:14)
[2022-09-21 07:19] LABS: HEMATOCRIT. 34.5 % (42.0-52.0); HEMOGLOBIN. 11.7 g/dL (14.0-18.0); MEAN CORPUSCULAR HEMOGLOBIN 31.3 pg (28.0-32.0); MEAN CORPUSCULAR VOLUME 92.5 fL (80.0-94.0); MEAN PLATELET VOLUME 8.4 fl (7.4-10.4); PLATELET 405 x1000/uL (130-400); RED BLOOD CELL COUNT 3.73 mill/uL (4.7-6.1); RED CELL DISTRIBUTION WIDTH 13.9 % (11.6-14.6)
[2022-09-21 07:48] LABS: CHLORIDE 103 mEq/L (98-107)
[2022-09-21 08:00] VITALS: BP 119/50
[2022-09-21] MEDS: ENOXAPARIN 40MG/0.4ML SYR SUBCUT SCH (08:49)
[2022-09-21] MEDS: DOCUSATE SODIUM 100MG CAPSULE PO SCH ×2 (08:49→17:00)
[2022-09-21] MEDS: AMANTADINE HCL 100 MG CAPSULE PO SCH ×2 (08:49→18:09)
[2022-09-21] MEDS: LACTULOSE 20G/30ML UDC PO SCH (08:49)
[2022-09-21] MEDS: FAMOTIDINE 20MG TABLET PO SCH (08:49)
[2022-09-21] MEDS: FERROUS SULFATE 325MG TABLET PO SCH ×3 (08:50→18:09)
[2022-09-21] MEDS: ASCORBIC ACID 500 MG TABLET PO SCH (08:50)
[2022-09-21] MEDS: ACETAMINOPHEN 325MG TABLET PO PRN ×2 (08:50→18:09)
[2022-09-21] MEDS: SENNOSIDES/DOCUSATE SOD 8.6/50MG TABLET PO SCH ×2 (08:50→18:09)
[2022-09-21] MEDS: POLYETHYLENE GLYCOL 3350 (17GM) 1 DOSE PACK PO SCH (08:50)
[2022-09-21] MEDS: SERTRALINE HCL 25MG TABLET PO SCH (08:50)
[2022-09-21] MEDS: PROPRANOLOL HCL 10MG TABLET PO SCH ×2 (08:51→18:10)
[2022-09-21 11:44] LABS: PLATELET ESTIMATE NORMAL
[2022-09-21] MEDS: ERGOCALCIFEROL 50000UNITS CAPSULE PO SCH (12:58)
[2022-09-21 20:00] VITALS: BP 110/54
[2022-09-21] MEDS: ATORVASTATIN CALCIUM 10MG TABLET PO SCH (21:15)
[2022-09-22] MEDS: CARBIDOPA/LEVODOPA 25/100MG TABLET PO SCH ×3 (06:30→21:02)
[2022-09-22 08:00] VITALS: BP 133/60
[2022-09-22] MEDS: AMANTADINE HCL 100 MG CAPSULE PO SCH ×2 (09:58→17:01)
[2022-09-22] MEDS: FAMOTIDINE 20MG TABLET PO SCH (09:58)
[2022-09-22] MEDS: SERTRALINE HCL 25MG TABLET PO SCH (09:58)
[2022-09-22] MEDS: DOCUSATE SODIUM 100MG CAPSULE PO SCH ×2 (09:58→17:01)
[2022-09-22] MEDS: LACTULOSE 20G/30ML UDC PO SCH (09:58)
[2022-09-22] MEDS: ASCORBIC ACID 500 MG TABLET PO SCH (09:59)
[2022-09-22] MEDS: FERROUS SULFATE 325MG TABLET PO SCH ×3 (09:59→17:01)
[2022-09-22] MEDS: PROPRANOLOL HCL 10MG TABLET PO SCH ×2 (09:59→17:00)
[2022-09-22] MEDS: ENOXAPARIN 40MG/0.4ML SYR SUBCUT SCH (10:00)
[2022-09-22] MEDS: ACETAMINOPHEN 325MG TABLET PO PRN (10:01)
[2022-09-22] MEDS: POLYETHYLENE GLYCOL 3350 (17GM) 1 DOSE PACK PO SCH (10:01)
[2022-09-22] MEDS: SENNOSIDES/DOCUSATE SOD 8.6/50MG TABLET PO SCH ×2 (10:03→16:59)
[2022-09-22 20:25] VITALS: BP 151/72
[2022-09-22] MEDS: ATORVASTATIN CALCIUM 10MG TABLET PO SCH (20:58)
[2022-09-23] MEDS: CARBIDOPA/LEVODOPA 25/100MG TABLET PO SCH ×4 (05:16→21:32)
[2022-09-23 08:00] VITALS: BP 127/50
[2022-09-23] MEDS: ASCORBIC ACID 500 MG TABLET PO SCH (09:00)
[2022-09-23] MEDS: LACTULOSE 20G/30ML UDC PO SCH (09:49)
[2022-09-23] MEDS: FERROUS SULFATE 325MG TABLET PO SCH ×3 (09:49→17:00)
[2022-09-23] MEDS: DOCUSATE SODIUM 100MG CAPSULE PO SCH ×2 (09:49→17:41)
[2022-09-23] MEDS: PROPRANOLOL HCL 10MG TABLET PO SCH ×2 (09:50→17:43)
[2022-09-23] MEDS: SERTRALINE HCL 25MG TABLET PO SCH (09:50)
[2022-09-23] MEDS: SENNOSIDES/DOCUSATE SOD 8.6/50MG TABLET PO SCH ×2 (09:50→17:40)
[2022-09-23] MEDS: FAMOTIDINE 20MG TABLET PO SCH (09:50)
[2022-09-23] MEDS: AMANTADINE HCL 100 MG CAPSULE PO SCH ×2 (09:50→17:40)
[2022-09-23] MEDS: POLYETHYLENE GLYCOL 3350 (17GM) 1 DOSE PACK PO SCH (09:51)
[2022-09-23] MEDS: ENOXAPARIN 40MG/0.4ML SYR SUBCUT SCH (09:52)
[2022-09-23] MEDS: ATORVASTATIN CALCIUM 10MG TABLET PO SCH (20:16)
[2022-09-23 21:48] VITALS: BP 111/56
[2022-09-24] MEDS: CARBIDOPA/LEVODOPA 25/100MG TABLET PO SCH ×3 (05:30→20:49)
[2022-09-24 07:53] VITALS: BP 126/61
[2022-09-24] MEDS: ASCORBIC ACID 500 MG TABLET PO SCH (09:00)
[2022-09-24] MEDS: AMANTADINE HCL 100 MG CAPSULE PO SCH ×2 (09:33→17:33)
[2022-09-24] MEDS: FAMOTIDINE 20MG TABLET PO SCH (09:33)
[2022-09-24] MEDS: FERROUS SULFATE 325MG TABLET PO SCH ×3 (09:33→17:00)
[2022-09-24] MEDS: DOCUSATE SODIUM 100MG CAPSULE PO SCH ×2 (09:33→17:33)
[2022-09-24] MEDS: PROPRANOLOL HCL 10MG TABLET PO SCH ×2 (09:33→17:36)
[2022-09-24] MEDS: SERTRALINE HCL 25MG TABLET PO SCH (09:34)
[2022-09-24] MEDS: POLYETHYLENE GLYCOL 3350 (17GM) 1 DOSE PACK PO SCH (09:34)
[2022-09-24] MEDS: SENNOSIDES/DOCUSATE SOD 8.6/50MG TABLET PO SCH ×2 (09:34→17:33)
[2022-09-24] MEDS: ENOXAPARIN 40MG/0.4ML SYR SUBCUT SCH (09:35)
[2022-09-24] MEDS: LACTULOSE 20G/30ML UDC PO SCH (09:37)
[2022-09-24] MEDS: ALPRAZOLAM 0.25 MG TABLET PO PRN ×2 (09:45→22:00)
[2022-09-24 19:48] VITALS: BP 101/48
[2022-09-24] MEDS: ATORVASTATIN CALCIUM 10MG TABLET PO SCH (20:48)
[2022-09-25] MEDS: CARBIDOPA/LEVODOPA 25/100MG TABLET PO SCH ×3 (06:23→21:30)
[2022-09-25 07:48] VITALS: BP 116/54
[2022-09-25] MEDS: POLYETHYLENE GLYCOL 3350 (17GM) 1 DOSE PACK PO SCH (07:54)
[2022-09-25] MEDS: LACTULOSE 20G/30ML UDC PO SCH (07:55)
[2022-09-25] MEDS: ENOXAPARIN 40MG/0.4ML SYR SUBCUT SCH (07:56)
[2022-09-25] MEDS: DOCUSATE SODIUM 100MG CAPSULE PO SCH ×2 (07:56→17:20)
[2022-09-25] MEDS: FERROUS SULFATE 325MG TABLET PO SCH ×3 (07:56→17:20)
[2022-09-25] MEDS: FAMOTIDINE 20MG TABLET PO SCH (07:56)
[2022-09-25] MEDS: AMANTADINE HCL 100 MG CAPSULE PO SCH ×2 (08:00→17:20)
[2022-09-25] MEDS: ASCORBIC ACID 500 MG TABLET PO SCH (08:00)
[2022-09-25] MEDS: PROPRANOLOL HCL 10MG TABLET PO SCH ×2 (08:00→17:20)
[2022-09-25] MEDS: SENNOSIDES/DOCUSATE SOD 8.6/50MG TABLET PO SCH ×2 (08:00→17:20)
[2022-09-25] MEDS: SERTRALINE HCL 25MG TABLET PO SCH (08:01)
[2022-09-25] MEDS: ACETAMINOPHEN 325MG TABLET PO PRN (11:44)
[2022-09-25 20:00] VITALS: BP 138/73
[2022-09-25] MEDS: ALPRAZOLAM 0.25 MG TABLET PO PRN (21:31)
[2022-09-25] MEDS: ATORVASTATIN CALCIUM 10MG TABLET PO SCH (21:31)
[2022-09-26] MEDS: CARBIDOPA/LEVODOPA 25/100MG TABLET PO SCH ×3 (05:22→22:00)
[2022-09-26 06:40] LABS: BASOPHILS % 0.6 % (0.0-2.0); HEMATOCRIT. 37.1 % (42.0-52.0); HEMOGLOBIN. 12.9 g/dL (14.0-18.0); LYMPHOCYTES % 27.6 % (20.0-50.0); MEAN CORPUSCULAR VOLUME 92.1 fL (80.0-94.0); MEAN PLATELET VOLUME 8.2 fl (7.4-10.4); MONOCYTES % 10.9 % (2.0-8.0); NEUTROPHILS % 59.9 % (40.0-76.0); PLATELET 332 x1000/uL (130-400); RED BLOOD CELL COUNT 4.03 mill/uL (4.7-6.1); RED CELL DISTRIBUTION WIDTH 15.1 % (11.6-14.6)
[2022-09-26 07:37] LABS: CHLORIDE 102 mEq/L (98-107)
[2022-09-26 08:00] VITALS: BP 117/38
[2022-09-26] MEDS: ASCORBIC ACID 500 MG TABLET PO SCH (09:00)
[2022-09-26] MEDS: ENOXAPARIN 40MG/0.4ML SYR SUBCUT SCH (09:54)
[2022-09-26] MEDS: POLYETHYLENE GLYCOL 3350 (17GM) 1 DOSE PACK PO SCH (09:54)
[2022-09-26] MEDS: LACTULOSE 20G/30ML UDC PO SCH (09:54)
[2022-09-26] MEDS: FERROUS SULFATE 325MG TABLET PO SCH ×3 (09:55→19:07)
[2022-09-26] MEDS: PROPRANOLOL HCL 10MG TABLET PO SCH ×2 (09:55→19:07)
[2022-09-26] MEDS: AMANTADINE HCL 100 MG CAPSULE PO SCH ×2 (09:55→19:07)
[2022-09-26] MEDS: SERTRALINE HCL 25MG TABLET PO SCH (09:55)
[2022-09-26] MEDS: ACETAMINOPHEN 325MG TABLET PO PRN (09:55)
[2022-09-26] MEDS: FAMOTIDINE 20MG TABLET PO SCH (09:55)
[2022-09-26] MEDS: SENNOSIDES/DOCUSATE SOD 8.6/50MG TABLET PO SCH ×2 (09:55→19:07)
[2022-09-26] MEDS: DOCUSATE SODIUM 100MG CAPSULE PO SCH ×2 (09:55→19:07)
[2022-09-26] MEDS: ATORVASTATIN CALCIUM 10MG TABLET PO SCH (22:00)
[2022-09-27] MEDS: CARBIDOPA/LEVODOPA 25/100MG TABLET PO SCH ×3 (06:35→22:21)
[2022-09-27 08:00] VITALS: BP 135/60
[2022-09-27] MEDS: ALPRAZOLAM 0.25 MG TABLET PO PRN (09:06)
[2022-09-27] MEDS: FAMOTIDINE 20MG TABLET PO SCH (09:06)
[2022-09-27] MEDS: ASCORBIC ACID 500 MG TABLET PO SCH (09:06)
[2022-09-27] MEDS: FERROUS SULFATE 325MG TABLET PO SCH ×3 (09:06→17:00)
[2022-09-27] MEDS: SENNOSIDES/DOCUSATE SOD 8.6/50MG TABLET PO SCH ×2 (09:06→17:43)
[2022-09-27] MEDS: AMANTADINE HCL 100 MG CAPSULE PO SCH ×2 (09:06→17:43)
[2022-09-27] MEDS: DOCUSATE SODIUM 100MG CAPSULE PO SCH ×2 (09:06→17:43)
[2022-09-27] MEDS: SERTRALINE HCL 25MG TABLET PO SCH (09:07)
[2022-09-27] MEDS: POLYETHYLENE GLYCOL 3350 (17GM) 1 DOSE PACK PO SCH (09:07)
[2022-09-27] MEDS: PROPRANOLOL HCL 10MG TABLET PO SCH ×2 (09:07→17:44)
[2022-09-27] MEDS: LACTULOSE 20G/30ML UDC PO SCH (09:07)
[2022-09-27] MEDS: ENOXAPARIN 40MG/0.4ML SYR SUBCUT SCH (09:08)
[2022-09-27 20:11] VITALS: BP 101/54
[2022-09-27] MEDS: ATORVASTATIN CALCIUM 10MG TABLET PO SCH (22:22)
[2022-09-27] MEDS ORDERED: ALPRAZOLAM 0.25 MG TABLET PO PRN (22:30)
[2022-09-28] MEDS: CARBIDOPA/LEVODOPA 25/100MG TABLET PO SCH ×3 (06:45→21:25)
[2022-09-28 08:00] VITALS: BP 109/54
[2022-09-28] MEDS: ASCORBIC ACID 500 MG TABLET PO SCH (09:00)
[2022-09-28] MEDS: DOCUSATE SODIUM 100MG CAPSULE PO SCH ×2 (09:47→17:58)
[2022-09-28] MEDS: FAMOTIDINE 20MG TABLET PO SCH (09:47)
[2022-09-28] MEDS: SERTRALINE HCL 25MG TABLET PO SCH (09:47)
[2022-09-28] MEDS: AMANTADINE HCL 100 MG CAPSULE PO SCH ×2 (09:48→17:58)
[2022-09-28] MEDS: SENNOSIDES/DOCUSATE SOD 8.6/50MG TABLET PO SCH ×2 (09:48→17:58)
[2022-09-28] MEDS: FERROUS SULFATE 325MG TABLET PO SCH ×3 (09:48→17:00)
[2022-09-28] MEDS: PROPRANOLOL HCL 10MG TABLET PO SCH ×2 (09:55→17:00)
[2022-09-28] MEDS: LACTULOSE 20G/30ML UDC PO SCH (09:55)
[2022-09-28] MEDS: POLYETHYLENE GLYCOL 3350 (17GM) 1 DOSE PACK PO SCH (09:55)
[2022-09-28] MEDS: ENOXAPARIN 40MG/0.4ML SYR SUBCUT SCH (09:56)
[2022-09-28] MEDS: ERGOCALCIFEROL 50000UNITS CAPSULE PO SCH (12:28)
[2022-09-28 20:00] VITALS: BP 99/58
[2022-09-28] MEDS: ALPRAZOLAM 0.25 MG TABLET PO PRN (21:25)
[2022-09-28] MEDS: ATORVASTATIN CALCIUM 10MG TABLET PO SCH (21:25)
[2022-09-29] MEDS: CARBIDOPA/LEVODOPA 25/100MG TABLET PO SCH ×3 (05:03→21:22)
[2022-09-29 08:00] VITALS: BP 123/69
[2022-09-29] MEDS: FAMOTIDINE 20MG TABLET PO SCH (09:00)
[2022-09-29] MEDS: ASCORBIC ACID 500 MG TABLET PO SCH (09:00)
[2022-09-29] MEDS: ENOXAPARIN 40MG/0.4ML SYR SUBCUT SCH (10:21)
[2022-09-29] MEDS: DOCUSATE SODIUM 100MG CAPSULE PO SCH ×2 (10:22→19:01)
[2022-09-29] MEDS: LACTULOSE 20G/30ML UDC PO SCH (10:22)
[2022-09-29] MEDS: POLYETHYLENE GLYCOL 3350 (17GM) 1 DOSE PACK PO SCH (10:22)
[2022-09-29] MEDS: FERROUS SULFATE 325MG TABLET PO SCH ×3 (10:23→19:02)
[2022-09-29] MEDS: AMANTADINE HCL 100 MG CAPSULE PO SCH ×2 (10:23→19:02)
[2022-09-29] MEDS: SENNOSIDES/DOCUSATE SOD 8.6/50MG TABLET PO SCH ×2 (10:23→19:00)
[2022-09-29] MEDS: SERTRALINE HCL 25MG TABLET PO SCH (10:23)
[2022-09-29] MEDS: PROPRANOLOL HCL 10MG TABLET PO SCH ×2 (10:23→19:02)
[2022-09-29 20:28] VITALS: BP 102/46
[2022-09-29] MEDS: ALPRAZOLAM 0.25 MG TABLET PO PRN (21:22)
[2022-09-29] MEDS: ATORVASTATIN CALCIUM 10MG TABLET PO SCH (21:23)
[2022-09-30] MEDS: CARBIDOPA/LEVODOPA 25/100MG TABLET PO SCH ×2 (06:44→14:28)
[2022-09-30 08:00] VITALS: BP 115/62
[2022-09-30] MEDS: LACTULOSE 20G/30ML UDC PO SCH (09:00)
[2022-09-30] MEDS: SERTRALINE HCL 25MG TABLET PO SCH (09:02)
[2022-09-30] MEDS: SENNOSIDES/DOCUSATE SOD 8.6/50MG TABLET PO SCH (09:02)
[2022-09-30] MEDS: AMANTADINE HCL 100 MG CAPSULE PO SCH (09:02)
[2022-09-30] MEDS: FAMOTIDINE 20MG TABLET PO SCH (09:02)
[2022-09-30] MEDS: FERROUS SULFATE 325MG TABLET PO SCH ×2 (09:02→14:28)
[2022-09-30] MEDS: PROPRANOLOL HCL 10MG TABLET PO SCH (09:03)
[2022-09-30] MEDS: POLYETHYLENE GLYCOL 3350 (17GM) 1 DOSE PACK PO SCH (09:03)
[2022-09-30] MEDS: ENOXAPARIN 40MG/0.4ML SYR SUBCUT SCH (09:03)
[2022-09-30] MEDS: DOCUSATE SODIUM 100MG CAPSULE PO SCH (09:04)
[2022-09-30] MEDS: ASCORBIC ACID 500 MG TABLET PO SCH (09:09)
== END 2022-09-30 15:10 | disposition home health service (06) | DRG 536 ==
PROVIDERS: ADMIT Physical Medicine & Rehabilitation Spinal Cord Injury Medicine; ATTEND Hospitalist
PROC: 4A00X4Z Measurement of Central Nervous Electrical Activity, External Approach (ICD-10-PCS; principal; 2022-09-20)
DX: S72.002A Fracture of unspecified part of neck of left femur, initial encounter for closed fracture (principal); I48.19 Other persistent atrial fibrillation; I50.22 Chronic systolic (congestive) heart failure; F02.83 Dementia in other diseases classified elsewhere, unspecified severity, with mood disturbance; F33.1 Major depressive disorder, recurrent, moderate; D64.9 Anemia, unspecified; D72.829 Elevated white blood cell count, unspecified; G20 Parkinson's disease; I11.0 Hypertensive heart disease with heart failure; D50.9 Iron deficiency anemia, unspecified; E55.9 Vitamin D deficiency, unspecified; F41.1 Generalized anxiety disorder; R26.9 Unspecified abnormalities of gait and mobility; W18.39XA Other fall on same level, initial encounter; K59.09 Other constipation; I95.9 Hypotension, unspecified; R13.10 Dysphagia, unspecified; Z82.49 Family history of ischemic heart disease and other diseases of the circulatory system; Z85.46 Personal history of malignant neoplasm of prostate; Z88.0 Allergy status to penicillin; Z90.79 Acquired absence of other genital organ(s); Z91.81 History of falling; Y93.89 Activity, other specified; Y92.89 Other specified places as the place of occurrence of the external cause; Y99.8 Other external cause status; Z79.82 Long term (current) use of aspirin; R53.81 Other malaise
CPT/HCPCS: 36415; 70551; 71045; 74018; 80048; 80053; 81003; 82140; 82306; 82607; 82728; 82746; 83540; 83550; 84134; 84145; 84443; 85025; 92523; 92610; 93970; 97110; 97112; 97116; 97150; 97162; 97166; 97530; 97535; A6261; J0690; J1650; J2765; J3420; A5200

== ENCOUNTER → 2022-11-06 | Outpatient (CLI) | payer MEDICARE, BC | END | disposition home or self-care (01) | LOC: RAD 12:45 | DX: S72.002A Fracture of unspecified part of neck of left femur, initial encounter for closed fracture (principal); M16.11 Unilateral primary osteoarthritis, right hip; Z96.642 Presence of left artificial hip joint; X58.XXXA Exposure to other specified factors, initial encounter; Y93.89 Activity, other specified; Y92.89 Other specified places as the place of occurrence of the external cause; Y99.8 Other external cause status | CPT/HCPCS: 73502 ==